=== PATIENT | female | born 1930 | race Caucasian/White ===

== ENCOUNTER 2018-03-30 06:13 | Day surgery (SDC) | payer MEDICARE, OTHER ==
[2018-03-30] MEDS ORDERED: LIDOCAINE 2% (SDV) 5 ML INJ (09:28)
[2018-03-30] MEDS ORDERED: PROPOFOL 60 ML (09:28)
== END 2018-03-30 11:15 | disposition home or self-care (01) ==
LOC: GIL 06:13
DX: K29.70 Gastritis, unspecified, without bleeding (principal); K25.9 Gastric ulcer, unspecified as acute or chronic, without hemorrhage or perforation; K31.7 Polyp of stomach and duodenum; K57.30 Diverticulosis of large intestine without perforation or abscess without bleeding; K63.5 Polyp of colon; K64.4 Residual hemorrhoidal skin tags; D64.9 Anemia, unspecified
CPT/HCPCS: 43239; 88305; 88312